=== PATIENT | female | born 1955 | race Caucasian/White ===

== ENCOUNTER 2024-02-08 11:47 | Emergency (ER) | payer MEDICARE, SELFPAY ==
[2024-02-08] VITALS (43 sets, daily range): BP systolic 97–123; BP diastolic 39–77; PULSE 68–91; RESP 16–25; TEMP 36.8; O2SAT 92–98
--- NOTE | 2024-02-08 11:45 | RT.EKG_ITS ---
APPROVED REPORT Exam: Resting ECG Reason for Exam: electrolyte abnormality Patient Location: E HR:81 bpm ECG Measurements Heart Rate 81 AXIS AK 137 P 29 QRSd 81 QRS 7 QT 340 T 123 QTc 396 Conclusion Sinus rhythm...normal P axis, V-rate 60- 99 Low voltage, precordial leads...precordial leads <1.0mV
[2024-02-08 12:19] LABS: Abs Immature Grans 0.04 10^3/uL (0.0-0.06); Absolute Basophil Count 0.07 10^3/uL (0.0-0.2); Absolute Lymphocyte Count 2.47 10^3/uL (1.2-3.4); Absolute Monocyte Count 0.61 10^3/uL (0.1-0.8); Absolute Neutrophil Count 6.67 10^3/uL (1.2-6.7); Basophils % 0.7 %; HCT 33.7 % (36.0-46.0); HGB 10.1 g/dL (11.2-15.7); Immature Grans % 0.4 %; Lymphocytes % 24.6 %; MCH 24.9 pg (27.0-33.0); MCV 83 fL (80-95); MPV 9.7 fL (8.0-11.0); Monocytes % 6.1 %; Neutrophils % 66.2 %; Platelet Count 375 10^3/uL (130-400); RBC 4.05 10^6/uL (3.93-5.22); RDW 17.3 % (11.7-14.6); RDW-SD 53.1 fL; WBC 10.06 10^3/uL (4.4-10.8)
[2024-02-08] MEDS: MAGNESIUM SULFATE 2 GM/50 ML BAG IV_INF (12:25)
[2024-02-08] MEDS: Potassium Chloride 20 MEQ TABCR 40 MEQ PO ×2 (12:26→15:56)
[2024-02-08 12:34] LABS: ALT 11 U/L (14-59); AST 19 U/L (15-37); Alkaline Phosphatase 88 U/L (46-116); Anion Gap 9.9 mmol/L (3-11); BUN 5 mg/dL (7-18); Bilirubin, Total 0.26 mg/dL (0.2-1.0); CO2 28.1 mmol/L (21.0-32.0); CREATININE 0.7 mg/dL (0.55-1.02); Chloride 111 mmol/L (98-107); Estimated GFR 94.15 (mL/min/1.73m2); Glucose 116 mg/dL (74-106); Magnesium 1.2 mg/dL (1.8-2.4); Sodium 149 mmol/L (136-145); Total Protein 6.2 g/dL (6.4-8.2)
[2024-02-08 12:37] LABS: Potassium 2.4 mmol/L (3.5-5.1)
[2024-02-08] MEDS: POTASSIUM CHLORIDE 20 MEQ/100 ML BAG 50 MEQ IV_INF (13:18)
[2024-02-08] MEDS: Magnesium Oxide 400 MG TAB 800 MG PO (15:56)
--- NOTE | 2024-02-09 16:08 | ED.GENADUL_ITS ---
Discharge Plan Disposition Patient Disposition: Home Condition: Serious Discharge Details Clinical Impression: Hypokalemia, Hypomagnesemia Primary Care Provider: None,None ED Provider: Mary De La Rosa Home Meds and New Rx's Prescriptions: New potassium chloride 10 mEq capsule, extended release 20 meq PO BID Qty: 120 0RF Rx Instructions: take 4 tablets daily for 5 days, then 1 tablet in the morning and 1 tablet in the evening thereafter magnesium 250 mg tablet 250 mg PO DAILY Qty: 30 0RF magnesium 250 mg tablet 500 mg PO DAILY Qty: 60 0RF Continued quetiapine 25 mg tablet 25 mg PO DAILY metronidazole 500 mg tablet 500 mg PO BID atorvastatin 80 mg tablet 80 mg PO QPM Eliquis 5 mg tablet 5 mg PO Q12H ciprofloxacin HCl 500 mg tablet 500 mg PO Q12H quetiapine 50 mg tablet 50 mg PO QHS aspirin [Adult Aspirin Regimen] 81 mg tablet,delayed release (DR/EC) 81 mg PO DAILY Discharge Instructions Instructions: Hypokalemia, High Potassium Diet, Low Magnesium Level (DC) Additional Instructions: Please take the supplements as prescribed, it is imperative that you follow-up with a primary care physician, please call the [facility] to establish care on Sunday You may also benefit from seeing a tying in machine operator given that your small bowel has been removed partially and you will not absorb enough nutrients Starting on a multivitamin is very important Please have your levels rechecked on Sunday We discussed that your potassium and magnesium levels are dangerously low, we have supplemented them partially, however we did talk about admission and the risk associated with having low magnesium and potassium Should you develop any symptoms including weakness or dizziness, you should be reassessed immediately and is very important to have your labs rechecked on Sunday Take the additional dose of potassium and magnesium this evening and continue on your meds tomorrow Discharge Data Discharge Date/Time-TO BE ENTERED AT DEPARTURE: 02/08/24 15:57 HPI General Date/Time Provider Initiated Documentation: 02/08/24 11:57 . HPI Narrative: 68-year-old complex female with history of recent's small bowel resection presents from [facility] with report of hypokalemia. She actually went for an appointment today and had some routine labs drawn and they called her on the way back from her appointment and told her to go to the nearest hospital to have electrolyte infusions. She states she feels great denies any dizziness or chest pain or any symptoms. She denies any vomiting or new medications. Related Data Home Medications ?Medication ?Instructions ?Recorded ?Confirmed apixaban 5 mg tablet (Eliquis) 5 mg PO Q12H 02/08/24 02/08/24 aspirin 81 mg tablet,delayed 81 mg PO DAILY 02/08/24 02/08/24 release (Adult Aspirin Regimen) atorvastatin 80 mg tablet 80 mg PO QPM 02/08/24 02/08/24 ciprofloxacin HCl 500 mg tablet 500 mg PO Q12H 02/08/24 02/08/24 magnesium 250 mg tablet 250 mg PO DAILY #30 tabs 02/08/24 magnesium 250 mg tablet 500 mg (2 x 250 mg) PO DAILY #60 02/08/24 tabs metronidazole 500 mg tablet 500 mg PO BID 02/08/24 02/08/24 potassium chloride 10 mEq 20 meq (2 x 10 mEq) PO BID #120 02/08/24 capsule,extended release caps quetiapine 25 mg tablet 25 mg PO DAILY 02/08/24 02/08/24 quetiapine 50 mg tablet 50 mg PO QHS 02/08/24 02/08/24 Previous Rx's ?Medication ?Instructions ?Recorded magnesium 250 mg tablet 250 mg PO DAILY #30 tabs 02/08/24 magnesium 250 mg tablet 500 mg (2 x 250 mg) PO DAILY #60 02/08/24 tabs potassium chloride 10 mEq 20 meq (2 x 10 mEq) PO BID #120 02/08/24 capsule,extended release caps Allergies Allergy/AdvReac Type Severity Reaction Status Date / Time No Known Allergies Allergy Unverified 02/08/24 11:56 General Stated Complaint: GenMedical ERIK: 3 Exam Narrative Exam Narrative: 68-year-old female alert and oriented, no acute distress, pupils equal round reactive to light and accommodation, cardiac rhythm regular, lungs clear to auscultation, no abdominal tenderness Course Vital Signs Vital signs: Vital Signs Temperature 36.8 C 02/08/24 11:52 Pulse 83 02/08/24 11:52 Respiratory Rate 16 02/08/24 11:52 Blood Pressure 117/77 02/08/24 11:52 Pulse Oximetry 95 02/08/24 11:52 Temperature 36.8 C 02/08/24 12:21 Temperature Source Temporal Artery Scan 02/08/24 12:21 Pulse 77 02/08/24 15:56 Pulse 78 02/08/24 15:40 Respiratory Rate 20 02/08/24 15:56 Respiratory Effort Normal, Non-Labored 02/08/24 12:22 Respiratory Depth Normal 02/08/24 12:22 Respiratory Pattern Normal 02/08/24 12:22 Blood Pressure 123/46 L 02/08/24 15:56 Blood Pressure Mean 75 02/08/24 15:43 Blood Pressure Position Supine 02/08/24 12:21 Pulse Oximetry 95 02/08/24 15:56 Oxygen Delivery Method Room Air 02/08/24 12:21 Oxygen Flow Rate 0 02/08/24 11:52 Pain Level 0 02/08/24 12:21 Lab/Test Results Lab/Test Results: Laboratory Tests Range/Units 02/08/24 12:15 WBC (4.4-10.8) 10^3/uL 10.06 RBC (3.93-5.22) 10^6/uL 4.05 Hgb (11.2-15.7) g/dL 10.1 L Hct (36.0-46.0) % 33.7 L MCV (80-95) fL 83 MCH (27.0-33.0) pg 24.9 L MCHC (32.0-36.0) % 30.0 L RDW (11.7-14.6) % 17.3 H Plt Count (130-400) 10^3/uL 375 MPV (8.0-11.0) fL 9.7 Immature Gran % % 0.4 Neutrophils % % 66.2 Lymphocytes % % 24.6 Monocytes % % 6.1 Eosinophils % % 2.0 Basophils % % 0.7 Nucleated RBC % (0.0-0.3) % 0.0 Absolute Neutrophils (1.2-6.7) 10^3/uL 6.67 Absolute Lymphocytes (1.2-3.4) 10^3/uL 2.47 Absolute Monocytes (0.1-0.8) 10^3/uL 0.61 Absolute Eosinophils (0.0-0.7) 10^3/uL 0.20 Absolute Basophils (0.0-0.2) 10^3/uL 0.07 Sodium (136-145) mmol/L 149 H Potassium (3.5-5.1) mmol/L 2.4 L* Chloride (98-107) mmol/L 111 H Carbon Dioxide (21.0-32.0) mmol/L 28.1 Anion Gap (3-11) mmol/L 9.9 BUN (7-18) mg/dL 5 L Creatinine (0.55-1.02) mg/dL 0.7 Est GFR (CKD-EPI 2020) (mL/min/1.73m2) 94.15 Glucose (74-106) mg/dL 116 H Calcium (8.5-10.1) mg/dL 8.0 L Magnesium (1.8-2.4) mg/dL 1.2 L Total Bilirubin (0.2-1.0) mg/dL 0.26 AST (15-37) U/L 19 ALT (14-59) U/L 11 L Alkaline Phosphatase (46-116) U/L 88 Total Protein (6.4-8.2) g/dL 6.2 L Albumin (3.4-5.0) g/dL 2.0 L Medical Decision Making 68-year-old female presenting with acute hypokalemia and hypomagnesemia. Potassium was repleted partially with 40 mill equivalents of p.o. potassium 20 mill equivalents of IV potassium, 2 g of IV mag +800 mg of oral mag. I recommended admission as patient's potassium level was 2.4 on presentation. Her EKG is reassuring she did not have any obvious dysrhythmia throughout this encounter. She is relatively asymptomatic patient adamantly declines staying in the hospital she has routine labs ordered for Sunday and will take high-dose potassium at home until her labs rechecked on Sunday. She is aware that she will likely have to take supplementation with potassium and magnesium for an extended period of time given her small bowel resection. She also has not established with a primary care physician. She lives in [facility] and wishes to establish in the area where she resides. She is encouraged to call them on Sunday. Patient is aware of the complications of low potassium and low magnesium and is agreeable to taking these medications and understands that her recommendation is that she is hospitalized for IV repletion at this time. She is discharged home in the care of her alert, oriented, and of decisional capacity Quality:SDOH Health Related Social Needs: No Data to Display Critical Care Time Critical Care Time Attestation: 35 minutes of critical care time secondary to acute hypokalemia and hypomagnesemia requiring telemetry monitoring and IV repletion. Patient also required oral supplementation diagnostic imaging and lab interpretation review [facility] All Active Problems (Updated 02/08/24 @ 15:22 by MICAH Watts) Hypomagnesemia (Acute) Hypokalemia (Acute) Social History Smoking risk assessment performed?: No Alcohol Intake: current Drug use: Never Substance use type: does not use Housing: house Do you feel safe at home: Yes Do you feel safe in your relationship?: Yes
== END 2024-02-08 15:57 | disposition home or self-care (01) ==
PROVIDERS: Emergency Provider Physician Assistant
DX: E87.6 Hypokalemia (principal); E83.42 Hypomagnesemia; Z98.890 Other specified postprocedural states; Z79.01 Long term (current) use of anticoagulants; Z79.82 Long term (current) use of aspirin
CPT/HCPCS: 80053; 93005; 96365; 96366; 96368; 99284; 83735; 85025; 93010; J3475; J3480